=== PATIENT | female | born 1980 | race Caucasian/White ===

== ENCOUNTER 2017-09-27 14:41 | Emergency (ER) | payer OTHER ==
[~2017-09-27] VITALS: Ht 154.9 cm; Wt 102.1 kg
[~2017-09-27 14:41] MED LIST: ASPIRIN EC325 M2 PO; CYMBALTA60 M1 PO; DOCUSATE SODIU100 M3 PO; IBUPROFEN800 M1 PO; METHADONE PO; PERCOCET 5-3251 EACH PO
--- NOTE | 2017-09-27 16:00 | ED GENERAL ADULT ---
History of Present Illness General Chief Complaint: General Adult Stated Complaint: PT DX SEPSIS, AMA [facility] Source: patient Exam Limitations: no limitations Vital Signs & Intake/Output Vital Signs & Intake/Output Vital Signs Date Time Temp Pulse Resp B/P B/P Pulse O2 O2 Flow FiO2 Mean Ox Delivery Rate 09/27 1818 99.1 86 16 139/75 09/27 1739 97 Room Air 09/27 1456 98.5 115 18 171/110 97 Room Air Allergies Coded Allergies: No Known Allergies (02/08/16) Reconcile Medications Amoxicillin/Potassium Clav (Augmentin 875-125 Tablet) 875 MG-125 MG TABLET 1 TAB PO BID SINUSITIS/LARYNGITIS Aspirin (Ecotrin*) 325 MG TABLET.DR 1 TAB PO DAILY BLOOD THINNER Benzonatate (Tessalon Perle) 100 MG CAPSULE 1 CAP PO TID PRN COUGH Docusate Sodium 100 MG CAPSULE 100 MG PO DAILY NEEDED PRN CONSTIPATION stool softener, available over the counter Duloxetine HCl (Cymbalta) 60 MG CAPSULE.DR 1 CAP PO DAILY ANXIETY (Reported) [METHADONE] 112 MG PO D FIBROMYALGIA (Reported) Mometasone Furoate (Nasonex) 50 MCG SPRAY.PUMP 2 SPRAY NASB DAILY PRN CONGESTION Oxycodone HCl/Acetaminophen (Percocet 5-325 MG Tablet) 1 EACH TABLET 1-2 TAB PO Q4-6 PRN PRN PAIN take as directed for pain control. do not exceed tylenol dose limit of 4 gm/day. do not combine with tylenol, but it's ok to take tylenol alternatively. Triage Note: PT TO ER C/C BILATERAL FOOT PAIN AND SWELLING X 2 MONTHS, WAS SEEN AT [facility] IN [place] FOR SEPSIS AND SIGNED OUT AMA. PATIENT BELIEVES SHE STILL HAS SEPSIS AND NEEDS ABX. STATES ORIGIN OF INFECTION WAS LEFT FOOT. AFEBRILE. Triage Nurses Notes Reviewed? yes Onset: Gradual Duration: worse persistent since (2 MONTHS) Timing: recent history Injury Environment: home Severity: moderate No Modifying Factors: none : No Patient currently breastfeeds: No HPI: Patient is a 37 YO female presenting to the emergency department with chief complaint of "I think I have sepsis and the antibiotics". Patient reports that she's been dealing with an upper respiratory infection for the past 2 months, sinus congestion, postnasal drip and laryngitis more recently. She reports that she lost her voice. Denies any current fevers or chills. She does admit that she was recently seen at another facility in the emergency department, they told her that she may have an infection in her foot but left AGAINST MEDICAL ADVICE because she did not like it there. She reports that she did not seek medical care for the past 2 months because she's been "busy with her children". Patient denies any chest pain palpitations or shortness of breath. She had admits to occasional use but not daily. Denies drinking today. Denies drug use. No change in bowel or bladder function. Denies noticing any rashes on her skin except she does admit that she's noticed increased dry skin on her lower extremities bilaterally. Has not been taking anything at home to help with symptoms. (Lindsay Wooten) Past History Travel History Traveled to [place] past 21 day No Medical History Any Pertinent Medical History? see below for history Neurological: NONE EENT: NONE Cardiovascular: NONE Respiratory: NONE Gastrointestinal: NONE Hepatic: NONE Renal: NONE Musculoskeletal: FIBROMIALGIA Psychiatric: NONE Endocrine: NONE Blood Disorders: NONE Cancer(s): NONE SEARCH ENGINE OPTIMIZATION CONSULTANT/Reproductive: NONE History of MRSA: No History of VRE: No History of CDIFF: No Surgical History Surgical History: non-contributory Psychosocial History Who do you live with Mother Services at Home None What is your primary language Upper Sorbian Tobacco Use: Never used Family History Hx Contributory? No (Lindsay Wooten) Review of Systems Review of Systems Constitutional: Reports: no symptoms. Comments Review of systems: See HPI, All other systems negative. Constitutional, no chills fever or weight loss HEENT: No visual changes Cardiovascular: No chest pain ,palpitation , orthopnea or ankle swelling Skin, no jaundice Respiratory: No dyspnea cough sputum or hemoptysis GI: No nausea no vomiting : No dysuria No hematuria Muscle skeletal: no back pain, no neck pain, Neurologic: No numbness no confusion no headaches Psych: No stress anxiety or depression,. Heme/endocrine: No bruising no bleeding no polyuria or polydipsia Immunology: No splenectomy or history of AIDS (Lindsay Wooten) Physical Exam Physical Exam General Appearance: no apparent distress, comfortable, obese Comments: Well-developed well-nourished person in no acute distress HEENT: Scleral icterus noted bilaterally. Extraocular motion intact, no nystagmus. Pupils equally round and reactive to light and accommodation. Nose is atraumatic. External auditory canal and Tympanic membranes clear. Pharynx normal. No swelling or edema. Raspy voice. Mild sinus tenderness palpation over the maxillary sinuses bilaterally. Neck: Supple, no lymphadenopathy, normal range of motion without pain or tenderness Back: Nontender Cardiovascular: Regular rate and rhythms no murmurs rubs or gallops, normal JVP Respiratory: No respiratory distress.breath sounds clear to auscultation bilaterally Abdomen: Soft, slightly diffusely distended, nontender, no appreciable organomegaly. Normal bowel sounds. No ascites Extremity: 3+ pitting edema in the lower extremity is bilaterally, no calf tenderness to palpation, normal and equal pulses. Neuro: Alert oriented x3, motor sensory normal, cranial nerves II through XII grossly intact. Skin: Petechial rash noted on the lower extremities bilaterally that extend from the dorsum of both feet up to mid vergara. Also very dry scaly skin noted in the lower extremities bilaterally. Psych: Appears intoxicated, memory and judgment is normal. Core Measures ACS in differential dx? No CVA/TIA Diagnosis: No Sepsis Present: No Sepsis Focused Exam Completed? No (Jimmy NOEL,Lindsay) Progress Differential Diagnoses I considered the following diagnoses in my evaluation of the patient: Alcohol abuse, alcohol withdrawal, hepatitis, biliary process, cholangitis, cholecystitis, tick borne illness Plan of Care: Orders Procedure Date/time Status Add-on Test (ER Only) 09/27 1853 Active Add-on Test (ER Only) 09/27 1847 Active Add-on Test (ER Only) 09/27 1723 Active Add-on Test (ER Only) 09/27 1642 Active TOTAL IRON BINDING CAPACITY 09/27 1612 Active HEPATITIS PANEL 09/27 1612 Active FOLIC ACID 09/27 1612 Active FERRITIN 09/27 1612 Active VITAMIN B12 09/27 1612 Active URINE 09/27 1559 Complete URINE DRUG SCREEN FOR ER ONLY 09/27 1559 Complete URINALYSIS 09/27 1559 Complete PARTIAL THROMBOPLASTIN TIME 09/27 1559 Complete PROTHROMBIN TIME 09/27 1559 Complete ETHANOL 09/27 1559 Active COMPREHENSIVE METABOLIC PANEL 09/27 1559 Active CBC WITHOUT DIFFERENTIAL 09/27 1559 Complete B-TYPE NATRIURETIC PEP (BNP) 09/27 1559 Active Current Medications Sig/Gabi Start time Last Medication Dose Stop Time Status Admin Sodium Chloride 1,000 ML ONCE ONE 09/27 1715 AC 09/27 (Normal Saline 0.9%) 09/28 0114 1814 Laboratory Tests 09/27/17 1629: Urine Opiates Screen < 100.00, Methadone Screen > 735 H, Barbiturate Screen < 60, Ur Phencyclidine Scrn 9.80, Amphetamines Screen < 100, U Benzodiazepines Scrn < 85, Urine Cocaine Screen < 50, Urine Cannabis Screen < 5.00, Urinalysis LIGHT H, Urine Color YEL, Urine Clarity HAZY H, Urine pH 6.5, Ur Specific [place] 1.010, Urine Protein NEG, Urine Ketones NEG, Urine Nitrite NEG, Urine Bilirubin NEG@ICTO, Urine Urobilinogen 4.0 H, Ur Leukocyte Esterase LARGE H, Ur Microscopic SEDIMENT EXAMINED, Urine RBC 3-5, Urine WBC 10-15 H, Ur Epithelial Cells MOD H, Urine Bacteria FEW H, Urine Mucus FEW, Urine Hemoglobin SMALL H, Urine Glucose NEG, Urine Test NEGATIVE 09/27/17 1612: Anion Gap 17 H, Estimated GFR > 60, BUN/Creatinine Ratio 6.0 L, Glucose 113 H , Calcium 8.7, TIBC 391, Ferritin 115.0, Total Bilirubin 3.7 H, AST 121 H, ALT 46, Alkaline Phosphatase 168 H, [place] Pept 190 H, Total Protein 9.4 H, Albumin 3.8, Globulin 5.6 H, Albumin/Globulin Ratio 0.7 L, Vitamin B12 Pending, Folate Pending, PT 15.0 H, INR 1.43 H, APTT 34, CBC w Diff NO MAN DIFF REQ, RBC 2.60 L, MCV 100.9 H, MCH 34.7 H, RDW 16.1 H, MPV 6.9 L, Gran % 80.9 H, Lymphocytes % 13.3 L, Monocytes % 5.0, Eosinophils % 0.5, Basophils % 0.3, Absolute Granulocytes 10.7 H, Absolute Lymphocytes 1.8, Absolute Monocytes 0.7 H, Absolute Eosinophils 0.1, Absolute Basophils 0, PUBS MCHC 34.3 , Hepatitis A IgM Ab Pending, Hep Bs Antigen Pending, Hep B Core IgM Ab Conf Pending, Hepatitis C Antibody Pending, Serum Alcohol 69.0 Diagnostic Imaging: Viewed by Me: Radiology Read, Ultrasound. Discussed w/RAD: Ultrasound. Radiology Impression: PATIENT: REED ALONSO PRESENT AGE: 37 PATIENT ACCOUNT NO: [id number] : 81 LOCATION: [facility] ORDERING PHYSICIAN: Lindsay NOEL SERVICE DATE: 09/27/17-1711 EXAM TYPE: US - US-LIMITED ABDOMEN EXAMINATION: US ABDOMEN LIMITED CLINICAL INFORMATION: Jaundice. Elevated bilirubin. COMPARISON: None TECHNIQUE: Real-time imaging of the right upper quadrant abdominal viscera. Color Doppler exam utilized. FINDINGS: Exam limited by body habitus and bowel gas. PANCREAS: Portions of the pancreatic head are visualized. Body and tail are obscured by bowel gas. No abnormality of the visualized portions of pancreas. LIVER: Liver is enlarged. Right lobe liver measures 23.4 cm superior inferior. There is no focal liver lesion. No intrahepatic bile duct dilatation. GALLBLADDER: Gallbladder is distended to a length of 10.6 cm by transverse dimension 4.5 cm. There is no edema of the wall the gallbladder. No pericholecystic fluid. No gallstone. Negative ultrasound Lawson's sign. COMMON BILE DUCT: Normal in caliber measuring 0.5 cm in diameter. RIGHT KIDNEY: Normal. No hydronephrosis. No renal calculi or focal parenchymal lesions. The kidney measures 13.1 cm in maximum dimension. FREE FLUID: None. IMPRESSION: Hepatomegaly. No focal liver lesion. No intrahepatic bile duct dilatation. No acute change of the gallbladder and no extrahepatic bile duct dilatation. DICTATED BY: Raad Looney MD DATE/TIME DICTATED:09/27/171844 NUCLEAR INSTRUCTOR:ABDIFATAH DATE/TIME TRANSCRIBED:1844 CONFIDENTIAL, DO NOT COPY WITHOUT APPROPRIATE AUTHORIZATION. < Electronically signed in Other Vendor System> SIGNED BY: Raad Looney MD 1850 CXR Impression: PATIENT: REED ALONSO PRESENT AGE: 37 PATIENT ACCOUNT NO: [id number] : 81 LOCATION: [facility] ORDERING PHYSICIAN: Lindsay NOEL SERVICE DATE: 09/27/177357 EXAM TYPE: RAD - XRY-CHEST XRAY, TWO VIEWS EXAMINATION: XR CHEST CLINICAL INFORMATION: Cough. COMPARISON: None TECHNIQUE: 2 views of the chest were obtained. FINDINGS: Lungs are symmetrically expanded and clear. No pulmonary consolidation or pleural effusion. Cardiac silhouette is approaching the upper range of normal size in size. The hilar contours are normal. The trachea is midline in position. The bones are unremarkable. IMPRESSION: No evidence of pneumonia; no acute cardiopulmonary findings. DICTATED BY: Stu Alexander MD DATE/TIME DICTATED:06/06 NUCLEAR INSTRUCTOR:ABDIFATAH DATE/TIME TRANSCRIBED:09/27/171713 CONFIDENTIAL, DO NOT COPY WITHOUT APPROPRIATE AUTHORIZATION. <Electronically signed in Other Vendor System> SIGNED BY: Stu Alexander MD 09/27/17 1720 Initial ED EKG: none Comments: H informed of all imaging results and lab results. She was educated on cessation of alcohol use. Family here to pick patient up. She will follow up with gastroenterology for further evaluation of hepatomegaly. (Lindsay Wooten) Departure Departure Time of Disposition: 1999 Disposition: HOME OR SELF CARE Condition: Stable Clinical Impression Primary Impression: Alcohol abuse Secondary Impressions: Hepatomegaly, Laryngitis, Leg edema, Macrocytic anemia Referrals: Migel Short MD (PCP) Additional Instructions: Follow-up with gastroenterology for further evaluation of enlarged liver and elevated liver enzymes. Avoid drinking alcohol as this will make her symptoms worse. Increase fluids. Eat a well-balanced diet. Return for worsening symptoms or concerns. Elevate legs which will help with edema. Wear compression stockings that he can find at the pharmacy to help with swelling as well. Departure Forms: Customer Survey D/C INS-APPENDICITIS EXCLUSION General Discharge Information Prescriptions: Current Visit Scripts Benzonatate (Tessalon Perle) 1 CAP PO TID PRN COUGH #20 CAP Mometasone Furoate (Nasonex) 2 SPRAY NASB DAILY PRN CONGESTION #1 INHAL Amoxicillin/Potassium Clav (Augmentin 875-125 Tablet) 1 TAB PO BID #20 TAB (Lindsay Wooten) PA/FORGE OPERATOR Co-Sign Statement Statement: ED Attending supervision documentation- [X] I saw and evaluated the patient. I have also reviewed all the pertinent lab results and diagnostic results. I agree with the findings and the plan of care as documented in the PA's/FORGE OPERATOR's documentation. Patient presents for evaluation of hoarseness and URI symptoms. Physical examination reveals a hoarse voice but otherwise patient is managing secretions well and has no apparent respiratory distress. [] I have reviewed the ED Record and agree with the PA's/FORGE OPERATOR's documentation. [] Additions or exceptions (if any) to the PAs/FORGE OPERATOR's note and plan are summarized below: [] (Chanelle NUÑEZ,Magdaleno Cespedes) Critical Care Note Critical Care Note Critical Care Time: non-applicable (Jimmy NOEL,Lindsay)
[2017-09-27 16:28] LABS: ABSOLUTE BASOPHIL COUNT 0 /CUMM (0.0-0.2); ABSOLUTE EOSINOPHIL COUNT 0.1 /CUMM (0.0-0.7); ABSOLUTE GRANULOCYTE CT 10.7 /CUMM (1.4-6.5); ABSOLUTE LYMPH COUNT 1.8 /CUMM (1.2-3.4); ABSOLUTE MONOCYTE COUNT 0.7 /CUMM (0.10-0.60); BASOPHIL % 0.3 % (0.0-2.0); EOSINOPHIL % 0.5 % (0-5); HEMATOCRIT 26.2 % (37-47); MEAN CORPUSCULAR HGB 34.7 PG (27.0-31.0); MEAN CORPUSCULAR HGB CONC 34.3 G/DL (33.0-37.0); MEAN CORPUSCULAR VOLUME 100.9 FL (81.0-99.0); MEAN PLATELET VOLUME 6.9 FL (7.4-10.4); PLATELET COUNT 174 /CUMM (130-400); RBC DISTRIBUTION WIDTH 16.1 % (11.5-14.5); WHITE BLOOD CELL COUNT 13.2 /CUMM (4.8-10.8)
[2017-09-27 16:29] LABS: GRANULOCYTE % 80.9 % (42.2-75.2)
[2017-09-27 16:39] LABS: PTT 34 SEC (25-37)
--- NOTE | 2017-09-27 17:20 | RADIOLOGY REPORT ---
EXAMINATION: XR CHEST CLINICAL INFORMATION: Cough. COMPARISON: None TECHNIQUE: 2 views of the chest were obtained. FINDINGS: Lungs are symmetrically expanded and clear. No pulmonary consolidation or pleural effusion. Cardiac silhouette is approaching the upper range of normal size in size. The hilar contours are normal. The trachea is midline in position. The bones are unremarkable. IMPRESSION: No evidence of pneumonia; no acute cardiopulmonary findings.
--- NOTE | 2017-09-27 18:47 | ULTRASOUND REPORT ---
EXAMINATION: US TRIPLEX OF LOWER EXTREMITIES, BILATERAL CLINICAL INFORMATION: Lower extremity edema. Pain. COMPARISON: None TECHNIQUE: Color-flow triplex imaging with spectral analysis and compression Doppler were performed on the lower extremities. FINDINGS: Respiratory variation, normal compression and augmented flow are noted throughout the lower extremities. The visualized common femoral vein, superficial femoral vein, profunda femoral vein, popliteal vein and midcalf peroneal and posterior tibial venous segments show no evidence of deep venous thrombosis. There is no Torres's cyst. IMPRESSION: Normal triplex scan without evidence of deep venous thrombosis involving the lower extremities.
--- NOTE | 2017-09-27 18:50 | ULTRASOUND REPORT ---
EXAMINATION: US ABDOMEN LIMITED CLINICAL INFORMATION: Jaundice. Elevated bilirubin. COMPARISON: None TECHNIQUE: Real-time imaging of the right upper quadrant abdominal viscera. Color Doppler exam utilized. FINDINGS: Exam limited by body habitus and bowel gas. PANCREAS: Portions of the pancreatic head are visualized. Body and tail are obscured by bowel gas. No abnormality of the visualized portions of pancreas. LIVER: Liver is enlarged. Right lobe liver measures 23.4 cm superior inferior. There is no focal liver lesion. No intrahepatic bile duct dilatation. GALLBLADDER: Gallbladder is distended to a length of 10.6 cm by transverse dimension 4.5 cm. There is no edema of the wall the gallbladder. No pericholecystic fluid. No gallstone. Negative ultrasound Lawson's sign. COMMON BILE DUCT: Normal in caliber measuring 0.5 cm in diameter. RIGHT KIDNEY: Normal. No hydronephrosis. No renal calculi or focal parenchymal lesions. The kidney measures 13.1 cm in maximum dimension. FREE FLUID: None. IMPRESSION: Hepatomegaly. No focal liver lesion. No intrahepatic bile duct dilatation. No acute change of the gallbladder and no extrahepatic bile duct dilatation.
[2017-09-27] MEDS ORDERED: AUGMENTIN 875-1 EACH PO (20:04)
[2017-09-27] MEDS ORDERED: TESSALON PERLE100 M1 PO (20:04)
[2017-09-27] MEDS ORDERED: NASONEX17 GM NASB (20:04)
[2017-09-27 20:39] VITALS: BP 186/77
== END 2017-09-27 20:33 ==
LOC: ERH 14:41
PROVIDERS: Physician Assistant
DX: R16.0 Hepatomegaly, not elsewhere classified (principal); J04.0 Acute laryngitis; D53.9 Nutritional anemia, unspecified; F10.10 Alcohol abuse, uncomplicated; M79.7 Fibromyalgia
CPT/HCPCS: 86317; 87798; 71046; 80307; 81001; 81025; 93970; G0480

== ENCOUNTER 2018-01-13 17:16 | Emergency (ER) | payer OTHER ==
[~2018-01-13 17:16] MED LIST changes: +AUGMENTIN 875-1 EACH PO; +NASONEX17 GM NASB; +TESSALON PERLE100 M1 PO
[2018-01-13 17:55] LABS: ABSOLUTE BASOPHIL COUNT 0.1 /CUMM (0.0-0.2); ABSOLUTE EOSINOPHIL COUNT 0.2 /CUMM (0.0-0.7); ABSOLUTE LYMPH COUNT 1.8 /CUMM (1.2-3.4); ABSOLUTE MONOCYTE COUNT 0.7 /CUMM (0.10-0.60); EOSINOPHIL % 2.6 % (0-5); GRANULOCYTE % 59.3 % (42.2-75.2); HEMATOCRIT 20.4 % (37-47); MEAN CORPUSCULAR HGB 26.9 PG (27.0-31.0); MEAN CORPUSCULAR HGB CONC 32.9 G/DL (33.0-37.0); MEAN CORPUSCULAR VOLUME 81.8 FL (81.0-99.0); MEAN PLATELET VOLUME 7.3 FL (7.4-10.4); PLATELET COUNT 138 /CUMM (130-400); RBC DISTRIBUTION WIDTH 17.4 % (11.5-14.5); RED BLOOD CELL CT 2.49 /CUMM (4.20-5.40); WHITE BLOOD CELL COUNT 6.8 /CUMM (4.8-10.8)
--- NOTE | 2018-01-13 18:50 | ED GENERAL ADULT ---
History of Present Illness General Chief Complaint: General Adult Stated Complaint: "SIB FACULTY PHYS. FOR TRANSFUSION S/P BLOODWORK" Source: patient Exam Limitations: no limitations Vital Signs & Intake/Output Vital Signs & Intake/Output Vital Signs Date Time Temp Pulse Resp B/P B/P Pulse O2 O2 Flow FiO2 Mean Ox Delivery Rate 01/13 1919 99.3 94 18 137/71 94 Room Air 01/13 1918 Room Air 01/13 1732 98.9 112 22 156/73 95 Room Air Reconcile Medications Calcium Carbonate/Vitamin D3 (Calcium 500 + D Tablet) (Unknown Strength) TABLET (Unknown Dose) PO DAILY SUPPLEMENT (Reported) Duloxetine HCl (Cymbalta) 60 MG CAPSULE.DR 1 CAP PO DAILY FIBROMYALGIA ( Reported) Losartan Potassium 50 MG TABLET 1 TAB PO DAILY BP (Reported) Meloxicam 15 MG TABLET 1 TAB PO DAILY PAIN/INFLAMMATION (Reported) Methadone HCl 10 MG/ML ORAL.CONC 122 MG PO DAILY PAIN CONTROL (Reported) Triage Note: 37F WENT TO PMD FOR ROUTINE PHYSICAL AND HAD BLOODWORK DONE. WAS INFORMED THAT HER H&H WERE LOW AND SHE WOULD NEED A BLOOD TRANSFUSION. HAS NEVER BEEN ANEMIC IN THE PAST OR HAD A TRANSFUSION BEFORE. DOES ENDORSE RECENT FATIGUE, SOB, AND [place]. STATES SHE WAS TAKING MOTRIN 800MG HEAVILY AND LAST MONTH VOMITED BLOOD. DC'ED MOTRIN AFTER. NOT CURRENTLY ON PPI Triage Nurses Notes Reviewed? yes Onset: Gradual Duration: unknown duration Severity: severe : No Patient currently breastfeeds: No HPI: 37-year-old female presents to the emergency department reporting that on 01/11/2018 she was seen by her primary care provider Dr. Corrales who had performed routine blood work on her. She was contacted on , yesterday, and was told that her hemoglobin was low at 6.6. She was told to be seen in the emergency department for transfusion. She was unable to come yesterday due to transportation, however she presents today for transfusion. She denies any chest pain, nausea, vomiting, diarrhea. She does report on occasion when walking up the stairs she has some shortness of breath, but this is not all the time. She denies any current loss of blood. Her last menstrual period was in 2015, she states that she has been on methadone and since then has not had a period. She is not currently sexually active. She also declined seeing any blood in the stool. She does report on occasion constipation for which she then does note a pinkish color on the toilet paper with wiping. She does report that about one and a half months ago she had reported to her primary care that she had been taking ibuprofen 800 mg 3 times a day for over a year. He told her to discontinue this. Not too long after this she reported vomiting blood, however nothing since then. She declines any history of HIV or hepatitis. (Leroy Neal) Allergies Coded Allergies: animal dander (ITCHY 01/13/18) (Lyssa NUÑEZ,[facility] [place]) Past History Travel History Traveled to [place] past 21 day No Medical History Blood Transfusion Hx: No Any Pertinent Medical History? see below for history Neurological: NONE EENT: NONE Cardiovascular: NONE, hypertension Respiratory: NONE Gastrointestinal: NONE Hepatic: NONE Renal: NONE Musculoskeletal: FIBROMIALGIA Psychiatric: NONE Endocrine: NONE Blood Disorders: NONE Cancer(s): NONE MOTOR TESTER/Reproductive: LAST MENSES 2015 History of MRSA: No History of VRE: No History of CDIFF: No Surgical History Surgical History: non-contributory Psychosocial History Who do you live with Mother Services at Home None What is your primary language Trinidadian Tobacco Use: Never used ETOH Use: occasional use Illicit Drug Use: denies illicit drug use Family History Hx Contributory? No Sexual History Sexually Active No (Leroy Neal) Review of Systems Review of Systems Constitutional: Reports: see HPI. EENTM: Reports: no symptoms. Respiratory: Reports: see HPI. Cardiovascular: Reports: no symptoms. GI: Reports: see HPI. Genitourinary: Reports: no symptoms. Musculoskeletal: Reports: no symptoms. Skin: Reports: no symptoms. Neurological/Psychological: Reports: no symptoms. Hematologic/Endocrine: Reports: no symptoms. Immunologic/Allergic: Reports: no symptoms. All Other Systems: Reviewed and Negative (Leroy Neal) Physical Exam Physical Exam General Appearance: well developed/nourished, no apparent distress, alert, awake , comfortable Head: atraumatic, normal appearance Eyes: Right: pale conjunctivae. Ears, Nose, Throat: normal pharynx, hearing grossly normal Neck: normal inspection, full range of motion Respiratory: normal breath sounds, chest non-tender, no respiratory distress Cardiovascular: murmur (III/IV systolic murmur, LUSB), tachycardia Gastrointestinal: normal bowel sounds, soft, non-tender Rectal: normal exam, normal rectal tone, heme negative stool Back: normal inspection, normal range of motion Extremities: normal inspection, normal range of motion Neurologic/Psych: no motor/sensory deficits, awake, alert, oriented x 3, normal gait, normal mood/affect Skin: intact, normal color, warm/dry Core Measures ACS in differential dx? No CVA/TIA Diagnosis: No Sepsis Present: No Sepsis Focused Exam Completed? No (Leroy Neal) Progress Differential Diagnoses I considered the following diagnoses in my evaluation of the patient: [Iron deficiency anemia, hemolytic anemia, aplastic anemia, pernicious anemia, acute blood loss anemia] Plan of Care: Orders Procedure Date/time Status BLOOD PRODUCT PICKUP 01/13 2026 Active Add-on Test (ER Only) 01/13 192 Active BLOOD PRODUCT PICKUP 01/13 1839 Active LEUKOCYTE POOR (PACKED CELLS) 01/13 1821 Active HUMAN BETA HCG SCREEN 01/13 1736 Complete COMPREHENSIVE METABOLIC PANEL 01/13 1729 Complete CBC WITHOUT DIFFERENTIAL 01/13 1729 Complete TYPE & SCREEN (NOT X-MATCH) 01/13 1729 Active Laboratory Tests 01/13/18 1736: Anion Gap 15, Estimated GFR > 60, BUN/Creatinine Ratio 18.0, Glucose 95, Calcium 9.2, Total Bilirubin 3.2 H, AST 37 H, ALT 24, Alkaline Phosphatase 119, Total Protein 8.6 H, Albumin 4.3, Globulin 4.3 H, Albumin/Globulin Ratio 1.0 L, Total Beta HCG NEGATIVE, CBC w Diff NO MAN DIFF REQ, RBC 2.49 L, MCV 81.8, MCH 26.9 L, MCHC 32.9 L, RDW 17.4 H, MPV 7.3 L, Gran % 59.3, Lymphocytes % 27.0, Monocytes % 10.1 H, Eosinophils % 2.6, Basophils % 1.0, Absolute Granulocytes 4.0, Absolute Lymphocytes 1.8, Absolute Monocytes 0.7 H, Absolute Eosinophils 0.2, Absolute Basophils 0.1 Initial ED EKG: none Hand-Off Endorsed To: Lyssa NUÑEZ,Ralph Pending: other (BLOOD TRANSFUSION) (Leroy Neal) Departure Departure Disposition: HOME OR SELF CARE Condition: Stable Clinical Impression Primary Impression: Anemia Referrals: Han NUÑEZ,Migel (PCP) Ellie NUÑEZ,Marcos Hutson Additional Instructions: Follow-up with primary care doctor outpatient Dr. Corrales. Follow-up with [facility] [employer] executive to determine source of anemia. Return to emergency department with any concerning symptoms. Please go over all results of today's visit with your primary care doctor. Contact your primary care doctor to let them know you were here in the emergency room. There may be nonspecific findings which may not be related to your visit today here in the emergency room but may require further evaluation and chronic monitoring by your primary care doctor. If you had a laceration today the chance of foreign body always remains. You should follow-up with your primary care doctor for recheck in 3-5 days for a wound check. If you had an x-ray done there is a chance that a fracture could have been missed on initial read and you should follow-up with your primary care doctor for repeat x-rays if symptoms persist. If your blood pressure was elevated here in the emergency room please have rechecked by [facility] primary care doctor within the next 48. If you were prescribed a narcotic here in the emergency room or any type of controlled substances you're not allowed to drive while taking this medication or operate any type of heavy machinery. Narcotics can make you feel lightheaded dizziness nausea and can cause constipation. You may need to last picker a stool softener. Thank you for choosing [facility] emergency room. Please return to the emergency room immediately if you have any other concerns worsening of symptoms. Departure Forms: Customer Survey General Discharge Information Comments 37-year-old female with unknown etiology of anemia, with a hemoglobin on presentation of 6.6. She was transfused with 2 units PRBCs and monitored. She was advised to follow up outpatient with Dr. Short. Also to follow up outpatient with hematology to determine underlying source of anemia. (Leroy Neal) Critical Care Note Critical Care Note Critical Care Time: non-applicable (Leroy Neal)
[2018-01-13] MEDS ORDERED: LOSARTAN POTASS50 M1 PO (20:49)
[2018-01-13] MEDS ORDERED: METHADONE10 MG/1 M2 PO (20:50)
[2018-01-13] MEDS ORDERED: CALCIUM 500 +1 EAC5 PO (20:51)
[2018-01-13] MEDS ORDERED: MELOXICAM15 M1 PO (20:51)
[2018-01-13 21:45] VITALS: BP 167/91
== END 2018-01-13 21:47 ==
LOC: ERH 17:16
PROVIDERS: Emergency Medicine
DX: D64.9 Anemia, unspecified (principal)
CPT/HCPCS: 86920; P9016